=== PATIENT | male | born 1965 | race Native Hawaiian/Other Pacific Islander ===

== ENCOUNTER 2017-11-11 08:00 | Outpatient (CLI) | payer OTHER ==
[2017-11-11 08:27] LABS: POTASSIUM 4.2 mmol/L (3.6-5.2); SODIUM 133 mmol/L (136-145)
[2017-11-11 08:29] LABS: PLATELET COUNT 184 K/uL (142-355)
== END 2017-11-11 19:20 ==
LOC: LABW 08:00
PROVIDERS: Surgery Vascular Surgery
DX: Z01.810 Encounter for preprocedural cardiovascular examination (principal); Z01.812 Encounter for preprocedural laboratory examination
CPT/HCPCS: 36415; 80048; 85027; 93005

== ENCOUNTER 2018-01-18 14:46 | Outpatient (CLI) | payer OTHER ==
[2018-01-18 15:08] LABS: POTASSIUM 4.1 mmol/L (3.6-5.2)
[2018-01-18 15:16] LABS: PLATELET COUNT 140 K/uL (142-355)
== END 2018-01-18 20:10 | disposition home or self-care (01) ==
LOC: LAB 14:46
PROVIDERS: Nurse Practitioner Family
DX: K21.9 Gastro-esophageal reflux disease without esophagitis (principal); E11.9 Type 2 diabetes mellitus without complications; I10 Essential (primary) hypertension; E29.1 Testicular hypofunction; R74.8 Abnormal levels of other serum enzymes; E78.00 Pure hypercholesterolemia, unspecified
CPT/HCPCS: 80053; 80061; 82306; 83036; 84436; 84443; 85027

== ENCOUNTER 2021-01-30 11:03 | Emergency (ER) | payer OTHER ==
[~2021-01-30] VITALS: Ht 167.6 cm; Wt 108.9 kg
[2021-01-30 11:12] VITALS: BP 123/71; TEMP 96.9
== END 2021-01-30 11:47 | disposition home or self-care (01) ==
LOC: ED 11:03
DX: L03.115 Cellulitis of right lower limb (principal); S80.811A Abrasion, right lower leg, initial encounter; W55.01XA Bitten by cat, initial encounter; Y92.89 Other specified places as the place of occurrence of the external cause
CPT/HCPCS: 96372; 99282; J0696